=== PATIENT | male | born 1955 | race Hispanic/Latino ===

== ENCOUNTER 2016-09-10 03:25 | Emergency (ER) | payer OTHER ==
[2016-09-10] MEDS ORDERED: Tetanus/Diphtheria Toxoids 0.5 ml Syringe IM ONE (04:01)
[2016-09-10] MEDS ORDERED: Lidocaine 2% w Epi 1:100,000 Inj IJ ONE (04:45)
[2016-09-10] MEDS ORDERED: Lidocaine 2% w Epi 1:100,000 Inj IJ STA (04:50)
--- NOTE | 2016-09-10 05:14 | C.PDOC ---
History Of Present Illness 61 year old patient, with a past medical history of hypertension, presents to the ED complaining of a splinter to the right leg sustained from a wooden box . Patient states he Tetanus is up to date up to date. Patient denies any active bleeding, numbness or weakness. Time Seen by Provider: 09/10/16 03:56 Chief Complaint (Nursing): Abnormal Skin Integrity History Per: Patient History/Exam Limitations: no limitations Onset/Duration Of Symptoms: Other Current Symptoms Are (Timing): Still Present Quality Of Symptoms: Painful Severity: Mild Pain Scale Rating Of: 3 Recent travel outside of the [place]: No Past Medical History Reviewed: Historical Data, Nursing Documentation, Vital Signs Vital Signs: Last Vital Signs Temp 97.4 F L 09/10/16 05:18 Pulse 81 09/10/16 05:18 Resp 17 09/10/16 05:18 BP 143/72 09/10/16 05:18 Pulse Ox 99 09/10/16 06:18 - Medical History PMH: HTN Family History: States: Unknown Family Hx - Social History Hx Alcohol Use: Yes Hx Substance Use: No - Immunization History Hx Tetanus Toxoid Vaccination: No Hx Influenza Vaccination: No Hx Pneumococcal Vaccination: No Review Of Systems Except As Marked, All Systems Reviewed And Found Negative. Musculoskeletal: Positive for: Leg Pain (right lower extremity pain) Neurological: Negative for: Weakness, Numbness Physical Exam - Physical Exam Appears: Non-toxic, No Acute Distress Skin: Warm, Dry, Other (puncture wound to RLE, palpable foreign body, (-) erythema (-)active bleeding) Eye(s): bilateral: Normal Inspection Extremity: Normal ROM, No Pedal Edema, No Calf Tenderness, Capillary Refill (<2 seconds), No Deformity, No Swelling Neurological/Psych: Oriented x3, Normal Motor, Normal Sensation Gait: Steady ED Course And Treatment O2 Sat by Pulse Oximetry: 99 (RA) Pulse Ox Interpretation: Normal - Other Rad right tibia/fibula X-Ray: Interpreted by Me, Viewed By Me Interpretation: no foreign body visible Progress Note: Plan: -Right tibia/fibula. -Tetanus Laceration - Laceration Repair RLE Wound Length (In cm): 2.5 Description Of Wound: Linear Wound Cleansed With: Sterile Saline Anesthesia: Lidocaine 1%, With Epi Wound Examination: Irrigated With Saline, No Tendon Injury With Wound Exploration, Foreign Material Removed Manually (small incision made using a 15 inch gauge; 1 inch splinter removed) Wound Closure: Steri Strips (wound closed x 2 ) Wound Complexity: Simple Disposition Counseled Patient/Family Regarding: Diagnosis, Need For Followup - Disposition Referrals: Non [facility] Provider, [Primary Care Provider] - Disposition: HOME/ ROUTINE Disposition Time: 05:11 Condition: STABLE Additional Instructions: Apply antibacterial oint to area Follow up with PMD Return to ER if fever, redness, swelling, drainage to area or worse Instructions: Soft Tissue Foreign Body (ED) - Clinical Impression Clinical Impression: Foreign body of right lower leg, Splinter in skin - PA / EXECUTIVE ASSISTANT TO GENERAL COUNSEL / Resident Statement MD/DO has reviewed & agrees with the documentation as recorded. - Scribe Statement The provider has reviewed the documentation as recorded by the Scribe Sushila Blue All medical record entries made by the Scribe were at my direction and personally dictated by me. I have reviewed the chart and agree that the record accurately reflects my personal performance of the history, physical exam, medical decision making, and the department course for this patient. I have also personally directed, reviewed, and agree with the discharge instructions and disposition.
[2016-09-10 05:19] VITALS: BP 143/72; PULSE 81; RESP 17; TEMP 97.4
[2016-09-10 06:05] VITALS: O2SAT 99
--- NOTE | 2016-09-10 12:14 | RAD ---
PROCEDURE: Radiographs of the right tibia and fibula. HISTORY: puncture wound to scalp COMPARISON: None available. TECHNIQUE: Frontal and lateral views obtained. FINDINGS: BONES: No fracture or destructive lesion. JOINT SPACES: Unremarkable. OTHER FINDINGS: Heterogeneous density in the soft tissue may represent dilated superficial veins. IMPRESSION: No evidence of acute fracture or dislocation.
== END 2016-09-10 05:31 | disposition home or self-care (01) ==
LOC: C.ER 03:25 → SUPCPDRO 03:25 → C.ER 05:31
DX: S80.851A Superficial foreign body, right lower leg, initial encounter (principal); W45.8XXA Other foreign body or object entering through skin, initial encounter; W22.8XXA Striking against or struck by other objects, initial encounter; Y93.89 Activity, other specified; Y92.89 Other specified places as the place of occurrence of the external cause; Y99.0 Civilian activity done for income or pay